=== PATIENT | female | born 2000 | race Two or more races ===

== ENCOUNTER 2023-04-09 00:14 | Emergency (ER) | payer MEDICAID ==
[~2023-04-09] VITALS: Ht 157.5 cm; Wt 85.0 kg
[2023-04-09 00:26] VITALS: BP 132/68; PULSE 69; RESP 16; TEMP 97.4; O2SAT 97
[2023-04-09 01:25] LABS: COVID19 ANTIGEN SOFIA FIA NEGATIVE (NEGATIVE)
[2023-04-09] MEDS ORDERED: PRED20TA2 PO (02:53)
[2023-04-09] MEDS ORDERED: AMOX500C2 PO (02:53)
[2023-04-09] MEDS ORDERED: ZOFR4T PO (02:54)
[2023-04-09] MEDS ORDERED: LOP2C PO (02:54)
[2023-04-09] MEDS ORDERED: BENZLOZ2 MT (02:54)
[2023-04-09] MEDS ORDERED: OFL50TS OT (02:56)
[2023-04-09] MEDS ORDERED: ONDANSETRON ODT 4 MG TAB PO ONE (03:00)
[2023-04-09] MEDS ORDERED: LOPERAMIDE HCL 2 MG CAP/TAB PO ONE (03:00)
[2023-04-09] MEDS ORDERED: cefTRIAXone SOD 1,000 MG VL IM ONE (03:00)
[2023-04-09] MEDS ORDERED: DexAMETHasone SOD PHOS 10MG/1ML VIAL INJ IM ONE (03:00)
== END 2023-04-09 03:37 | disposition home or self-care (01) ==
LOC: ER 00:14
DX: J03.90 Acute tonsillitis, unspecified (principal); H66.91 Otitis media, unspecified, right ear; Z20.822 Contact with and (suspected) exposure to COVID-19
CPT/HCPCS: 36415; 87426; 96372; 99284; J0696; J1100; Q0162

== ENCOUNTER 2024-03-11 19:41 | Emergency (ER) | payer OTHER, MEDICAID ==
[~2024-03-11] VITALS: Ht 157.5 cm; Wt 96.6 kg
[~2024-03-11 19:41] MED LIST: AMOX500C2 PO; BENZLOZ2 MT; LOPE2CAP16 PO; OFL50TS OT; PRED20TA2 PO; ZOFR4T PO
--- NOTE | 2024-03-11 20:00 | ED.PDOC ---
History of Present Illness HPI Comments 23 y.o female presents to the ED for a chief complaint of a sore throat, headache, and a non productive cough that started 3 days ago. Patient reports taking over the counter medication like Theraflu but denies any relief. Patient denies any nausea, vomiting, diarrhea, fever, chills. chest pain or SOB. Denies medical history or allergies. Chief Complaint: Flu like Time Seen by MD: 19:48 Primary Care Provider: NONE Reviewed Notes: Nurses Notes, Medications, Allergies Allergies: Coded Allergies: NO KNOWN ALLERGIES (Unverified , 04/09/23) Home Meds Active Scripts Ofloxacin (Otic) (FLOXIN OTIC) [address], 5 DROP OT BID, #10 ML Prov:KALE BLACKMONA Q PHOTOGRAPHIC EDITOR 04/09/23 Loperamide Hcl (Imodium) 2 Mg Cp, 2 MG PO Q6HPRN PRN, #6 CAP As needed for diarrhea Prov:JOSE BLACKMONALDA Q PHOTOGRAPHIC EDITOR 04/09/23 Ondansetron Odt 4MG Tab (ZOFRAN PO) 4 Mg Tb, 1 TAB PO Q8HPRN PRN, #15 TAB As needed for nausea ODT TAB-DISSOLVE IN MOUTH, THEN SWALLOW Prov:JOSE BLACKMONALDA Q PHOTOGRAPHIC EDITOR 04/09/23 Benzocaine-Menthol (Mouth-Thro (Cepacol Sore Throat) 1 Clyde Clyde, 1 CLYDE MT Q4HPRN PRN, #24 CLYDE As needed for sore throat Prov:KALE BLACKMONA Q PHOTOGRAPHIC EDITOR 04/09/23 Prednisone (Prednisone) 20 Mg Tab, 1 TAB PO DAILY for 5 Days, #25 TAB Start tomorrow with food Prov:KALE BLACKMONA Q PHOTOGRAPHIC EDITOR 04/09/23 Amoxicillin Trihydrate (Amoxicillin) 500 Mg Cap, 1 CAP PO TID for 10 Days, #30 CAP Prov:KALE BLACKMONA Q PHOTOGRAPHIC EDITOR 04/09/23 Information Source: Patient Mode of Arrival: Ambulatory Severity: Moderate Timing: Days (3) Past Medical History PAST MEDICAL HISTORY: Denies Surgical History: Denies all surgeries PRESCRIPTION CLERK History: No Pertinent PRESCRIPTION CLERK History Family History Family History: Reviewed,noncontributory to illness, No family hx of Cancer, No family hx of DM, No family hx of Heart zenobia, No family hx of HTN, No family hx ofKidney zenobia, No family hx of Liver zenobia, No family hx of Lung zenobia, No family hx of Stroke Social History Smoker: Non-Smoker Alcohol: Denies ETOH Use Drugs: Denies Drug Use Lives In: Home Constitutional: denies: chills, diaphoresis, fatigue, fever, malaise, sweats, weakness, others EENTM: reports: throat pain; denies: blurred vision, double vision, ear bleeding, ear discharge, ear drainage, ear pain, ear ringing, eye pain, eye redness, hearing loss, mouth pain, mouth swelling, nasal discharge, nose bleeding, nose congestion, nose pain, photophobia, tearing, throat swelling, voice changes, others Respiratory: reports: cough; denies: hemoptysis, orthopnea, SOB at rest, shortness of breath, SOB with excertion, stridor, wheezing, others Cardiovascular: denies: chest pain, dizzy spells, diaphoresis, Dyspnea on exertion, edema, irregular heart beat, left arm pain, lightheadedness, palpitations, PND, syncope, others Gastrointestinal: denies: abdomen distended, abdominal pain, blood streaked bowels, constipated, diarrhea, dysphagia, difficulty swallowing, hematemesis, melena, nausea, poor appetite, poor fluid intake, rectal bleeding, rectal pain, vomiting, others Genitourinary: denies: abnormal vagina bleeding, burning, dyspareunia, dysuria, flank pain, frequency, hematuria, incontinence, pain, , vagina discharge, urgency, others Neurological: reports: headache; denies: dizziness, fainting, left sided numbness, left sided weakness, numbness, paresthesia, pre-existing deficit, right sided numbness, right sided weakness, seizure, speech problems, tingling, tremors, weakness, others Musculoskeletal: denies: back pain, gout, joint pain, joint swelling, muscle pain, muscle stiffness, neck pain, others Integumetry: denies: bruises, change in color, change in hair/nails, dryness, laceration, lesions, lumps, rash, wounds, others Allergic/Immunocompromised: denies: Difficulty Healing, Frequent Infections, Hives, Itching, others Hematologic/Lymphatic: denies: anemia, blood clots, easy bleeding, easy bruising, swollen glands, others Endocrine: denies: excessive hunger, excessive sweating, excessive thirst, excessive urination, flushing, intolerance to cold, intolerance to heat, unexplained weight gain, unexplained weight loss, others Psychiatric: denies: anxiety, bipolar disorder, depression, hopeless, panic disorder, schizophrenia, sleepless, suicidal, others All Other Systems: Reviewed and Negative Physical Exam General Appearance: No Apparent Distress, Normal HEENT: Normal ENT Inspection, Pharynx Normal, TMs Normal Neck: Full Range of Motion, Non-Tender, Normal, Normal Inspection Respiratory: Chest Non-Tender, Lungs Clear, No Accessory Muscle Use, No Respiratory Distress, Normal Breath Sounds Cardiovascular: No Edema, No JVD, No Murmur, No Gallop, Normal Peripheral Pulses, Regular Rate/Rhythm Breast Exam: Deferred Gastrointestinal: No Organomegaly, Non Tender, No Pulsatile Mass, Normal Bowel Sounds, Soft Genitalia: Deferred Pelvic: Deferred Rectal: Deferred Extremities: No calf tenderness, Normal capillary refill, Normal inspection, Normal range of motion, Non-tender, No pedal edema Musculoskeletal : Apperance: Normal Neurologic: Alert, gravity prospecting operator II-XII nml as Tested, No Motor Deficits, Normal Affect, Normal Mood, No Sensory Deficits Cerebellar Function: Normal Reflexes: Normal Skin: Dry, Normal Color, Warm Lymphatic: No Adenopathy Was a procedure done? Was a procedure done?: No Differential Dx Considerations may include: Bronchitis, Influenza, Viral syndrome, Migraines, Dehydration, Electrolyte imbalance X-Ray, Labs, Meds, VS Vital Signs Date Time Temp Pulse Resp B/P (MAP) Pulse Ox O2 Delivery O2 Flow Rate FiO2 03/11/24 19:54 98.3 100 17 120/72 (88) 97 03/11/24 19:54 17 97 Room Air* 0 21 X-Ray, Labs, Meds, VS Comment Imaging: X-rays and CT scans were reviewed and interpreted by this provider, imaging shows no fractures and no pathological disease. Pending radiology review. Laboratory: Labs reviewed and interpreted by this provider. No significant abnormalities noted. Patient has prior medical visits reviewed. Med reconciliation performed Vital signs reviewed Time of 1ST Reevaluation: 20:00 Reevaluation 1ST: Unchanged Patient Education/Counseling: Diagnosis, Treatment, Prognosis, Need For Follow Up (Patient advised to follow-up in the emergency room in the next 24 to 48 hours if symptoms do not improve. Advised follow-up with PCP in the next 3 to 5 days. Patient verbalized understanding. ) Family Education/Counseling: No Family Present Departure 1 Departure Time of Disposition: 20:33 Impression: Primary Impression: Viral illness Disposition: HOME / SELF CARE / HOMELESS Condition: Fair e-Prescriptions Montelukast Sodium (Singulair) 10 Mg Tab 10 MG PO DAILY, #30 TAB Prov: ADRIANA HODGSONP 03/11/24 Ibuprofen Micronized (Ibuprofen) 800 Mg Tab 800 MG PO TID PRN, #30 TAB Prov: ADRIANA HODGSON 03/11/24 Promethazine-Dm (Promethazine Dm 6.25-15 mg/5Ml) 1 Mirian Mirian 5 ML PO TID PRN, #240 ML Prov: ADRIANA HODGSON 03/11/24 Discharged With: Self Critical Care Note Critical Care Time?: No Stability Stability form required: No I personally scribed for ADRIANA HODGSON ([email or web address]) on 03/11/24 at 20:00. Electronically submitted by Gina Dcaosta ([facility]). ADRIANA HODGSON Mar 11, 2024 20:00
[2024-03-11] MEDS ORDERED: IBUP-1455 PO (20:35)
[2024-03-11] MEDS ORDERED: MONT10TA23 PO (20:35)
[2024-03-11] MEDS ORDERED: PROM1SOL4 PO (20:35)
[2024-03-11 22:34] VITALS: BP 99/76; PULSE 90; RESP 18; O2SAT 98
== END 2024-03-11 22:40 | disposition home or self-care (01) ==
LOC: ER 19:41
DX: B34.9 Viral infection, unspecified (principal); Z79.899 Other long term (current) drug therapy